=== PATIENT | male | born 2000 | race African-American/Black ===

== ENCOUNTER 2024-05-15 10:50 | Inpatient (IN) | payer OTHER, SELFPAY ==
[2024-05-15 11:34] LABS: Hemoglobin 16.1 g/dL (14.0-18.0); Mean Corpuscular HGB CONC 35.8 g/dL (32.0-36.0); Mean Corpuscular Hemoglobin 29.3 pg (27.0-31.0); Mean Corpuscular Volume 81.8 fL (78.0-98.0); Mean Platelet Volume 9.8 fL (7.4-10.4); Platelet Count 336 10x3/uL (130-400); RBC Distribution Width 12.8 % (11.5-14.5)
[2024-05-15] MEDS ORDERED: Lorazepam 2 MG/ML VIAL ONE (11:36)
[2024-05-15 11:53] LABS: Dilantin Less than 1.8 ug/mL (10.0-20.0)
[2024-05-15 11:56] LABS: Carbamazepine-Tegretol 1.5 ug/mL (4.0-12.0)
[2024-05-15 11:59] LABS: ALT (SGPT) 53 U/L (8-55); AST (SGOT) 43 U/L (5-34); Acetaminophen Less than 10 mcg/mL (Less than 10); Albumin 4.8 g/dL (3.5-5.0); Alcohol Less than 10.0 mg/dL (Less than 10); Alkaline Phosphatase 73 U/L (40-110); Anion Gap 28 mmol/L (10-20); BUN (Urea Nitrogen) 12 mg/dL (8.9-20.6); Bilirubin, Total 0.2 mg/dL (0.2-1.2); Calc. Creatinine Clearance 0 mL/min (70-130); Calcium 9.8 mg/dL (7.8-10.44); Carbon Dioxide 11 mmol/L (22-29); Chloride 102 mmol/L (98-107); Estimated GFR 54; Globulin 3.3 g/dL (2.4-3.5); Glucose 256 mg/dL (70-105); Potassium 4.7 mmol/L (3.5-5.1); Protein, Total 8.1 g/dL (6.0-8.3); Salicylate Less than 8.0 mg/dL (Less than 8.0); Sodium 136 mmol/L (136-145)
[2024-05-15] MEDS ORDERED: Etomidate 40 MG (20 mL) VIAL ONE (12:04)
[2024-05-15] MEDS ORDERED: Rocuronium Bromide 10 MG/ML (10ML VIAL) ONE (12:04)
[2024-05-15] MEDS ORDERED: Propofol 1,000 MG/100 ML VIAL IV ONE (12:05)
[2024-05-15 12:17] LABS: Bacteria/HPF None Seen HPF (None Seen); Bilirubin Negative (Negative); Blood, Urine 2+ (Negative); Clarity Clear (Clear); Glucose, Urine (Dipstick) 100 mg/dL (Negative); Ketone, Urine Trace mg/dL (Negative); Leukocyte Negative Leu/uL (Negative); Nitrite Negative (Negative); Protein, Urine (Dipstick) 100 mg/dL (Neg-Trace); RBC/HPF 0-3 HPF (0-3); Specific Gravity, Urine 1.009 (1.002-1.036); Sperm/HPF 1+ HPF (None Seen); Squamous Epithelial 0-3 HPF (0-3); Urobilinogen Normal mg/dL (Less than 2); WBC/HPF 0-3 HPF (0-3); pH, Urine 5.5 (5.0-9.0)
[2024-05-15 12:22] LABS: Band 18 % (5-11); Lymphocytes 13 % (21-51); Metamyelocyte 2 % (0-0); Monocytes 3 % (0-10); Neutrophil 63 % (42-75); Platelet Adequacy Comment Platelets Normal; Polychromasia SLIGHT = 2-3 cells HPF (0-2); Reactive Lymphocytes 1 % (0-10)
[2024-05-15 12:23] LABS: Amphetamine Not Detected (NotDetected); Barbiturates Screen Not Detected (NotDetected); Benzodiazepine Screen Not Detected (NotDetected); Cocaine Metabolite Screen Not Detected (NotDetected); Methadone Not Detected (NotDetected); Methamphetamine Not Detected (NotDetected); Opiate Screen Not Detected (NotDetected); Oxycodone Screen Not Detected (NotDetected); Phencyclidine (PCP) Not Detected (NotDetected); THC/Cannabinoid Screen Detected (NotDetected); Tricyclic Screen Not Detected (NotDetected)
[2024-05-15 12:38] LABS: Actual Bicarbonate (HCO3a) 19.4 mEq/L (22-28); Analyzer IN Cardio ER; Base Excess (BEa) -8.6 mEq/L (-2.0 to +3.0); CO2 Tension 49.2 mmHg (35.0-45.0); Calcium, Ionized (arterial) 1.32 mmol/L (1.12-1.30); Carboxyhemoglobin (COHb) 0.3 gm% (0.0-3.0); Hematocrit-ABG 50 % (42.0-52.0); O2 Tension (PaO2), arterial 195.6 mmHg (80.0-100.0); Potassium - ABG Lab 3.74 mmol/L (3.70-5.30); pH, Arterial 7.214 (7.35-7.45)
[2024-05-15] MEDS ORDERED: Acetaminophen 325 MG TAB PO PRN (12:57)
[2024-05-15] MEDS ORDERED: Piperacillin/Tazobactam 3.375 GM in Sodium Chloride 0.9% 100 ML IVPB SCH (13:00)
[2024-05-15 13:55] LABS: Puncture Site Left Radial artery
[2024-05-15] MEDS ORDERED: Fentanyl CADD 100 ML IV SCH ×2 (14:00→15:15)
[2024-05-15] MEDS ORDERED: Ampicillin/Sulbactam 3 GM VIAL ONE (14:19)
[2024-05-15] MEDS ORDERED: Sodium Chloride 0.9% 0 ML ONE (14:19)
[2024-05-15] MEDS ORDERED: Ventilator Sedation Protocol 1 EACH FS SCH (14:35)
[2024-05-15 14:53] LABS: Lactic Acid 6.52 mmol/L (0.5-2.2)
[2024-05-15] MEDS ORDERED: Propofol BOLUS 1,000 MG/100 ML VIAL IV PRN (15:15)
[2024-05-15] MEDS ORDERED: DISCONTINUE PREVIOUS NARCOTIC PAIN MEDICATIONS AND BENZODIAZEPINES FS SCH (15:15)
[2024-05-15] MEDS ORDERED: Fentanyl BOLUS 250 ML IVPB PRN (15:15)
[2024-05-15] MEDS: SODIUM CHLORIDE IVPB SCH (15:36)
[2024-05-15] MEDS: FOSPHENYTOIN SODIUM IVPB SCH (15:36)
[2024-05-15] MEDS: ADMIXTURE FEE IVPB SCH (15:36)
[2024-05-15] MEDS: Propofol 1,000 MG/100 ML VIAL IV PRN (15:37)
[2024-05-15] MEDS: Sodium Chloride 0.9% 1,000 ML IV SCH ×2 (15:38→17:46)
[2024-05-15] MEDS: Piperacillin/Tazobactam 3.375 GM in Sodium Chloride 0.9% 100 ML IVPB SCH ×4 (15:38→21:08)
[2024-05-15 15:59] VITALS: BMI 26.3
[2024-05-15] MEDS: Heparin 5,000 UNITS/ML VIAL SC SCH (16:29)
[2024-05-15] MEDS: Famotidine/PF 20 mg/2ml Vial SLOW IVP SCH (20:11)
[2024-05-15] MEDS: levETIRAcetam 500 MG (5 mL) VIAL SLOW IVP SCH (20:11)
[2024-05-15] MEDS: Fosphenytoin Sodium 200 MG in Sodium Chloride 0.9% 50 ML IVPB SCH (20:49)
[2024-05-15] MEDS: Lorazepam 2 MG/ML VIAL SLOW IVP PRN (21:08)
[2024-05-15] MEDS: Morphine 2 MG/ML VIAL SLOW IVP PRN (21:56)
[2024-05-16 04:07] LABS: #Basophils Less than 0.03 10x3/uL (0.0-0.2); #Eosinophils Less than 0.03 10x3/uL (0.0-0.7); %Basophils 0.2 % (0.0-1.0); %Lymphocytes 16.7 % (21.0-51.0); %Neutrophils 71.8 % (42.0-75.0); Hematocrit 39.7 % (42.0-52.0); Hemoglobin 14.2 g/dL (14.0-18.0); Mean Corpuscular HGB CONC 35.8 g/dL (32.0-36.0); Mean Corpuscular Hemoglobin 29.5 pg (27.0-31.0); Mean Corpuscular Volume 82.4 fL (78.0-98.0); Platelet Count 265 10x3/uL (130-400); RBC Distribution Width 12.9 % (11.5-14.5); Red Blood Cell (RBC) Count 4.82 mill/uL (4.70-6.10)
[2024-05-16 04:17] LABS: Lactic Acid 1.93 mmol/L (0.5-2.2)
[2024-05-16 04:24] LABS: Anion Gap 14 mmol/L (10-20); BUN (Urea Nitrogen) 9 mg/dL (8.9-20.6); CK (CPK) 503 U/L (30-200); Calc. Creatinine Clearance 103 mL/min (70-130); Calcium 8.8 mg/dL (7.8-10.44); Carbon Dioxide 18 mmol/L (22-29); Chloride 114 mmol/L (98-107); Estimated GFR 68; Glucose 110 mg/dL (70-105); Potassium 4.4 mmol/L (3.5-5.1); Sodium 142 mmol/L (136-145)
[2024-05-16] MEDS: Sodium Chloride 0.45% 1,000 ML IV SCH (10:37)
[2024-05-16] MEDS ORDERED: Fosphenytoin Sodium 150 MG in Sodium Chloride 0.9% 50 ML IVPB SCH ×2 (13:00→21:00)
[2024-05-16] MEDS: levETIRAcetam 500 MG TAB PO SCH (20:34)
[2024-05-16] MEDS: Phenytoin 50 MG Chewable Tablet PO SCH (20:37)
[2024-05-17 05:35] LABS: #Basophils Less than 0.03 10x3/uL (0.0-0.2); #Eosinophils Less than 0.03 10x3/uL (0.0-0.7); %Basophils 0.2 % (0.0-1.0); %Eosinophils 0.1 % (0.0-10.0); %Lymphocytes 33.5 % (21.0-51.0); %Monocytes 8.7 % (0.0-10.0); %Neutrophils 57.2 % (42.0-75.0); Hematocrit 36.5 % (42.0-52.0); Hemoglobin 13.2 g/dL (14.0-18.0); Mean Corpuscular HGB CONC 36.2 g/dL (32.0-36.0); Mean Corpuscular Hemoglobin 29.1 pg (27.0-31.0); Mean Corpuscular Volume 80.6 fL (78.0-98.0); Mean Platelet Volume 10.9 fL (7.4-10.4); Platelet Count 243 10x3/uL (130-400); RBC Distribution Width 12.9 % (11.5-14.5); Red Blood Cell (RBC) Count 4.53 mill/uL (4.70-6.10)
[2024-05-17 05:52] LABS: Anion Gap 16 mmol/L (10-20); BUN (Urea Nitrogen) 7 mg/dL (8.9-20.6); Calc. Creatinine Clearance 135 mL/min (70-130); Calcium 8.9 mg/dL (7.8-10.44); Carbon Dioxide 23 mmol/L (22-29); Chloride 103 mmol/L (98-107); Estimated GFR 95; Glucose 84 mg/dL (70-105); Potassium 3.2 mmol/L (3.5-5.1); Sodium 139 mmol/L (136-145)
[2024-05-17 08:29] VITALS: TEMP 98.4
[2024-05-17] MEDS: Potassium Chloride 20 MEQ TAB PO SCH (09:05)
[2024-05-17] MEDS: OXcarbazepine 300 MG TAB PO SCH (11:54)
[2024-05-17 13:34] VITALS: BP 149/96
[2024-05-17] MEDS ORDERED: OXcarbazepine 300 MG TAB PO SCH (21:00)
[2024-05-17] MEDS ORDERED: levETIRAcetam 500 MG TAB PO SCH (21:00)
== END 2024-05-17 13:38 | disposition home or self-care (01) | DRG 100 ==
LOC: ERS 10:50 → ERHOLD 13:01 → CCU 15:15 → 2SE 05-16 18:45
PROVIDERS: ADMIT Internal Medicine; ATTEND Family Medicine
PROC: 4A00X4Z Measurement of Central Nervous Electrical Activity, External Approach (ICD-10-PCS; principal; 2024-05-15)
DX: G40.901 Epilepsy, unspecified, not intractable, with status epilepticus (principal); J96.01 Acute respiratory failure with hypoxia; E87.20 Acidosis, unspecified; N17.9 Acute kidney failure, unspecified; M62.82 Rhabdomyolysis; Z83.3 Family history of diabetes mellitus; Z82.49 Family history of ischemic heart disease and other diseases of the circulatory system; F12.10 Cannabis abuse, uncomplicated; Z79.01 Long term (current) use of anticoagulants
CPT/HCPCS: 31500; 36415; 36416; 36600; 51702; 70450; 71045; 80048; 80053; 80156; 80164; 80175; 80177; 80178; 80183; 80184; 80185; 80306; 80307; 81003; 81015; 82550; 82805; 83605; 85025; 87040; 87086; 93005; 94002; 94003; 94760; 96365; 96366; 96375; 99292; J0295; J1644; J1953; J2060; J2272; J2543; J2704; J3490; J7030; Q2009